=== PATIENT | female | born 1955 | race Caucasian/White ===

== ENCOUNTER 2021-05-30 16:45 | Emergency (ER) | payer MEDICARE, OTHER ==
--- NOTE | 2021-05-30 18:37 | ED Physician Documentation ---
History of Present Illness - Stated complaint Stated Complaint: GLF/RT WRIST - Chief complaint Chief Complaint: Trauma Hd/Nk - History obtained from History obtained from: Patient, Family - History of Present Illness Timing: Today Pain level max: 4 Pain level now: 3 - Additonal information Additional information: Patient is a 66-year-old female who is visiting the [place]. She states that last night she tripped fell and struck her head on a desk. Causing bruising to the bilateral eyes and nose. Has had nausea and vomiting today. She relates this to taking a multivitamin on an empty stomach. She also complains of right wrist pain. She states her right ankle was hurting earlier but is not hurting now. Ambulating without any difficulty. No back pain. No loss of consciousness. No fevers. No chills. Does not take any blood thinners. She states that she does not currently have a headache or neck pain. Also denies any back pain. No numbness or tingling. No loss of bowel or bladder control. Review of Systems Constitutional: denies: Fever, Chills Respiratory: denies: Cough GI: reports: Nausea, Vomiting. denies: Diarrhea Neurologic: denies: Focal weakness, Numbness, Confused, Altered mental status PD PAST MEDICAL HISTORY - Past Medical History Past Medical History: Yes Cardiovascular: Hypertension - Present Medications Home Medications: Ambulatory Orders Medication Instructions Recorded Confirmed Benazepril HCl [Lotensin] 40 mg PO DAILY 05/30/21 05/30/21 Cetirizine HCl [Zyrtec] 10 mg PO DAILY 05/30/21 05/30/21 Multivitamin 1 each PO DAILY 05/30/21 05/30/21 Ondansetron Odt [Zofran] 4 mg TL Q6H PRN #10 tablet 05/30/21 - Allergies Allergies/Adverse Reactions: Allergies Allergy/AdvReac Type Severity Reaction Status Date / Time prednisone Allergy Unknown Verified 05/30/21 17:26 triamcinolone [From Nasacort] Allergy Unknown Verified 05/30/21 17:25 PD ED PE NORMAL - Vitals Vital signs reviewed: Yes - General General: Alert and oriented X 3, No acute distress, Well developed/nourished - HEENT HEENT: PERRL, Other (Bilateral periorbital ecchymosis, ecchymosis to the bridge of the nose. Mild tenderness. o/w atraumatic) - Neck Neck: Supple, no meningeal sign, No bony TTP - Cardiac Cardiac: RRR, Strong equal pulses - Respiratory Respiratory: No respiratory distress, Clear bilaterally - Abdomen Abdomen: Soft, Non tender, Non distended - Derm Derm: Warm and dry - Extremities Extremities: No deformity, Other (Mild tender palpation over the dorsum of the right wrist. Mild swelling and bruising. Full range of motion. No snuffbox tenderness. Neurovascularly intact) - Neuro Neuro: Alert and oriented X 3, outcomes analyst 2-12 intact, No motor deficit, No sensory deficit, Normal speech Eye Opening: Spontaneous Motor: Obeys Commands Verbal: Oriented GCS Score: 15 - Psych Psych: Normal mood, Normal affect Results - Vitals Vitals: Vital Signs - 24 hr 05/30/21 05/30/21 05/30/21 17:22 19:24 20:26 Temperature 36.0 C L Heart Rate 87 86 85 Respiratory 20 17 13 Rate Blood Pressure 198/87 H 173/80 H 177/102 H O2 Saturation 100 96 100 Oxygen O2 Source Room air - Rads (name of study) head CT Radiology: Final report received, EMP read contemporaneously, See rad report maxillofacial CT Radiology: Final report received, EMP read contemporaneously, See rad report cervical spine CT Radiology: Final report received, EMP read contemporaneously, See rad report R wrist xray Radiology: Final report received, EMP read contemporaneously, See rad report PD MEDICAL DECISION MAKING - ED course Complexity details: reviewed results, re-evaluated patient, considered differential, d/w patient ED course: 66-year-old female status post a ground-level fall yesterday. No acute findings on CT scans. The right wrist x-ray shows a possible distal radius fracture, patient placed in a Velcro splint. Patient will follow up with her doctor for further care. Ambulating without difficulty. Patient is well-appearing, nontoxic. Afebrile. No hypoxia. No further vomiting. Will prescribe Zofran for home. Patient counseled regarding signs and symptoms for which I believe and urgent re-evaluation would be necessary. Patient with good understanding of and agreement to plan and is comfortable going home at this time This document was made in part using voice recognition software. While efforts are made to proofread this document, sound alike and grammatical errors may occur. Normal neurological exam. ANO x3. CT neck: IMPRESSION: Straightening of the normal lordotic curvature. No fracture Severe diffuse cervical spondylosis and facet arthropathy as above Incidentally noted partially visualized, large calcified right paratracheal lymph node. CT head: : No acute intracranial process. Ct Facial bones: No fracture identified. Bilateral maxillary sinus disease. R wrist xray: Bones: Mild cortical irregularity involving the distal radial articular surface raising possibility of occult or minimally displaced fracture. This is not well seen on other proj ections. No suspicious bony lesions. Scattered subchondral sclerosis and spurring. Soft tissues: No suspicious soft tissue calcifications. IMPRESSION: Possible distal radial fracture as detailed above. This finding technically age indeterminate and recommend correlation with point tenderness. If there is persistent clinical diagnostic uncertainty, recommend short interval radiographic follow-up after treatment for further assessment. Departure - Departure Disposition: 01 Home, Self Care Clinical Impression: Head injury Qualifiers: Encounter type: initial encounter Qualified Code(s): S09.90XA - Unspecified injury of head, initial encounter Sprain of wrist, right Qualifiers: Encounter type: initial encounter Qualified Code(s): S63.501A - Unspecified s prain of right wrist, initial encounter Condition: Good Instructions: ED Head Injury Closed, ED Sprain Wrist Follow-Up: your,doctor in 1 week [Other] Prescriptions: Ondansetron Odt [Zofran] 4 mg TL Q6H PRN #10 tablet PRN Reason: Nausea / Vomiting Comments: You can use Motrin or Tylenol as needed for pain. Your head CT does not show any acute abnormalities. There are no acute fractures in your face or neck. You do have a calcified lymph node in your neck that can be followed up further with your doctor. On the x-ray of your wrist, there is one view that shows a possible minimally displaced fracture, though this is unclear if this is a true fracture or not. Recommend repeat x-ray in 1 week with your doctor. Wear the Velcro wrist splint until then. Return if you worsen. CT neck: IMPRESSION: Straightening of the normal lordotic curvature. No fracture Severe diffuse cervical spondylosis and facet arthropathy as above Incidentally noted partially visualized, large calcified right paratracheal lymph node. CT head: : No acute intracranial process. Ct Facial bones: No fracture identified. Bilateral maxillary sinus disease. R wrist xray: Bones: Mild cortical irregularity involving the distal radial articular surface raising possibility of occult or minimally displaced fracture. This is not well seen on other projections. No suspicious bony lesions. Scattered subchondral sclerosis and spurring. Soft tissues: No suspicious soft tissue calcifications. IMPRESSION: Possible distal radial fracture as detailed above. This finding technically age indeterminate and recommend correlation with point tenderness. If there is persistent clinical diagnostic uncertainty, recommend short interval radiographic follow-up after treatment for further assessment. Discharge Date/Time: 05/30/21 20:55
[2021-05-30] MEDS ORDERED: ONDANSETRON 4 MG/2 ML VIAL IVP STA (19:05)
--- NOTE | 2021-05-30 19:34 | XRAY Report ---
PROCEDURE: Wrist 4 View RT INDICATIONS: fall, pain TECHNIQUE: 4 views of the wrist were acquired. COMPARISON: None. FINDINGS: Bones: Mild cortical irregularity involving the distal radial articular surface raising possibility o f occult or minimally displaced fracture. This is not well seen on other projections. No suspicious bony lesions. Scattered subchondral sclerosis and spurring. Soft tissues: No suspicious soft tissue calcifications. IMPRESSION: Possible distal radial fracture as detailed above. This finding technically age indeterminate and rec ommend correlation with point tenderness. If there is persistent clinical diagnostic uncertainty, rec ommend short interval radiographic follow-up after treatment for further assessment. Reviewed by: Chris Hampton MD on 05/30/2021 7:32 PM PDT Approved by: Chris Hampton MD on 05/30/2021 7:32 PM PDT Station ID: [id number]
--- NOTE | 2021-05-30 19:39 | CT Report ---
PROCEDURE: HEAD WO INDICATIONS: fall, pain TECHNIQUE: Noncontrast 4.5 mm thick angled axial sections acquired from the foramen magnum to the vertex. For r adiation dose reduction, the following was used: automated exposure control, adjustment of mA and/or kV according to patient size. COMPARISON: None. FINDINGS: Image quality: Excellent. CSF spaces: Basal cisterns are patent. No extra-axial fluid collections. Ventricles are normal in size and shape. Brain: No midline shift. No intracranial masses or hemorrhage. Lo-white matter interface is norm al. Skull and face: Calvarium and visualized facial bones are intact, without suspicious lesions. Sinuses: Visualized sinuses and mastoids are clear. IMPRESSION: No acute intracranial process. Reviewed by: Chris Hampton MD on 05/30/2021 7:38 PM PDT Approved by: Chris Hampton MD on 05/30/2021 7:38 PM PDT Station ID: [id number]
--- NOTE | 2021-05-30 19:43 | CT Report ---
PROCEDURE: CERVICAL SPINE WO INDICATIONS: fall, pain TECHNIQUE: Noncontrast 3 mm thick sections acquired from the skull base to the T4 level. Sagittal and coronal r eformats were then constructed. For radiation dose reduction, the following was used: automated exp osure control, adjustment of mA and/or kV according to patient size. COMPARISON: None. FINDINGS: Image quality: Excellent. Bones: No fractures or dislocations. Visualized superior ribs are intact. Straightening of the nor mal lordotic curvature. Scattered multilevel endplate spurring and diffuse facet arthropathy. Grade 1 retrolisthesis of C4 on C5. Severe disc space narrowing at C4-C5, C5-C6 and C6-C7. Soft tissues: Prevertebral soft tissues are normal in thickness. No paravertebral hematomas. No ap ical pneumothoraces. Incidentally noted large calcified right paratracheal lymph node. IMPRESSION: Straightening of the normal lordotic curvature. No fracture Severe diffuse cervical spondylosis and facet arthropathy as above Incidentally noted partially visualized, large calcified right paratracheal lymph node. Reviewed by: Chris Hampton MD on 05/30/2021 7:42 PM PDT Approved by: Chris Hampton MD on 05/30/2021 7:42 PM PDT Station ID: [id number]
--- NOTE | 2021-05-30 19:46 | CT Report ---
PROCEDURE: MAXILLOFACIAL WO INDICATIONS: fall, pain TECHNIQUE: Noncontrast 1.5 mm thick axial images acquired from the mandible through the frontal sinuses, with co mago and sagittal reformatting. For radiation dose reduction, the following was used: automated ex posure control, adjustment of mA and/or kV according to patient size. COMPARISON: None. FINDINGS: Image quality: Excellent. Bones and teeth: Orbital dominique are intact. Sinus dominique show no fracture or deformity. Nasal bones and septum are intact. Visualized portions of the mandible demonstrate no fractures or subluxation. Zygomatic arches are intact. Pterygoid plates are intact. Visualized portions of the skull base an d auditory canals are intact. Sinuses: The associated cyst and/or mucosal thickening involving the left maxillary antrum. Minimal r ight maxillary sinus disease. Mastoid air cells are aerated. Soft tissues: No edema, masses, or fluid collections. No enlarged lymph nodes. No soft tissue lace rations or debris. Vascular: Visualized vascular structures appear normal in the absence of contrast. Bony vascular fo ramina and canals are intact. IMPRESSION: No fracture identified. Bilateral maxillary sinus disease. Reviewed by: Chris Gaona MD on 05/30/2021 7:44 PM PDT Approved by: Chris Gaona MD on 05/30/2021 7:44 PM PDT Station ID: [id number]
[2021-05-30 20:26] VITALS: BP 177/102
== END 2021-05-30 20:55 | disposition home or self-care (01) ==
LOC: ED 16:45
DX: S09.90XA Unspecified injury of head, initial encounter (principal); S63.501A Unspecified sprain of right wrist, initial encounter; S05.12XA Contusion of eyeball and orbital tissues, left eye, initial encounter; S05.11XA Contusion of eyeball and orbital tissues, right eye, initial encounter; I89.8 Other specified noninfective disorders of lymphatic vessels and lymph nodes; W01.190A Fall on same level from slipping, tripping and stumbling with subsequent striking against furniture, initial encounter
CPT/HCPCS: 36415; 96374; 99284